=== PATIENT | female | born 1995 | race Caucasian/White ===

== ENCOUNTER 2017-08-24 17:57 | Emergency (ER) | payer OTHER ==
[2017-08-24 18:17] LABS: HCG,QUALITATIVE URINE NEGATIVE; PH,URINE 5.5 (4.5-8); URINE APPEARANCE Clear; URINE BILIRUBIN Negative (NEGATIVE); URINE BLOOD 1+ (NEGATIVE); URINE COLOR YELLOW; URINE GLUCOSE (UA) Negative (NEGATIVE); URINE KETONE Negative (NEGATIVE); URINE NITRITE Negative (NEGATIVE); URINE PROTEIN Negative (NEGATIVE); URINE UROBILINOGEN 0.2 (0.2-1.0)
[2017-08-24 18:21] VITALS: BP 128/79; PULSE 94; TEMP 98.4; BMI 30.1
[2017-08-24 18:48] LABS: BASO % 0.5 % (0-2.0); EOS % 1.7 % (0-4.5); HEMATOCRIT 38.7 % (32.4-45.2); HEMOGLOBIN 13.1 GM/dl (10.7-15.3); LYMPH % 29.7 % (8-40); MCH 32.3 pg (25.7-33.7); MCHC 33.8 g/dl (32.0-36.0); MEAN CELL VOLUME 95.7 fl (80-96); MEAN PLT VOLUME 10.1 fl (7.5-11.1); MONO % 6.7 % (3.8-10.2); NEUT % 61.4 % (42.8-82.8); PLATELET COUNT 233 K/MM3 (134-434); RBC 4.04 M/mm3 (3.60-5.2); RDW 11.8 % (11.6-15.6); WHITE BLOOD COUNT 7.4 K/mm3 (4.0-10.8)
--- NOTE | 2017-08-24 19:01 | PDOC ---
History of Present Illness - History of Present Illness Initial Comments: 08/24/17 19:53 History of Present Illness: 22 y/o F (LMP: July 21) with no PMH presents to the ED with vaginal spotting for 2 days. Patient took two at home tests on 08/21 and 08/22, which were both positive. Yesterday she noticed minimal spotting, and today she reports heavier spotting. She also reports associated right sided pressure/ cramping. She is eating and drinking well. She denies prior pregnancies. Reports her menstrual periods are usually regular. Denies fever, chills. Denies nausea, vomiting, diarrhea. Denies alcohol, tobacco or drug use. Review of Systems: CONSTITUTIONAL: Absent: fever, chills, diaphoresis, generalized weakness, malaise, loss of appetite HEENT: Absent: rhinorrhea, nasal congestion, throat pain, throat swelling, difficulty swallowing, mouth swelling, ear pain, eye pain, visual changes CARDIOVASCULAR: Absent: chest pain, syncope, palpitations, irregular heart rate , lightheadedness, peripheral edema RESPIRATORY: Absent: cough, shortness of breath, dyspnea with exertion, orthopnea, wheezing, stridor, hemoptysis GASTROINTESTINAL: Absent: abdominal pain, abdominal distension, nausea, vomiting , diarrhea, constipation, melena, hematochezia GENITOURINARY: +spotting, right sided pressure/cramping. Absent: dysuria, frequency, urgency, hesitancy, hematuria, flank pain, genital pain MUSCULOSKELETAL: Absent: myalgia, arthralgia, joint swelling SKIN: Absent: rash, itching, pallor HEMATOLOGIC/IMMUNOLOGIC: Absent: easy bleeding, easy bruising, lymphadenopathy, frequent infections ENDOCRINE: Absent: unexplained weight gain, unexplained weight loss, heat intolerance, cold intolerance NEUROLOGIC: Absent: headache, focal weakness or paresthesias, dizziness, unsteady gait, seizure, mental status changes, bladder or bowel incontinence PSYCHIATRIC: Absent: anxiety, depression, suicidal or homicidal ideation, hallucinations. <Guillermina Franco - Last Filed: 08/24/17 19:53> <Wili Grey - Last Filed: 08/29/17 07:16> - General Chief Complaint: Vaginal Sxs Stated Complaint: VAGINAL BLEEDING Time Seen by Provider: 08/24/17 19:00 Past History <Guillermina Franco - Last Filed: 08/24/17 19:53> - Past Medical History COPD: No - Reproductive History Is Patient Now?: Yes (STATES 4 WEEKS) (#): 1 Para: 0 Polycystic Ovaries: No Tubal Ligation: No - Suicide/Smoking/Psychosocial Hx Smoking History: Never smoked Have you smoked in the past 12 months: No Information on smoking cessation initiated: No Hx Alcohol Use: No Drug/Substance Use Hx: No Substance Use Type: None <Wili Grey - Last Filed: 08/29/17 07:16> - Past Medical History Allergies/Adverse Reactions: Allergies Allergy/AdvReac Type Severity Reaction Status Date / Time No Known Allergies Allergy Verified 08/24/17 17:58 Home Medications: Ambulatory Orders NK [No Known Home Medication] 08/24/17 *Physical Exam - Vital Signs Last Vital Signs Temp Pulse Resp BP Pulse Ox 98.4 F 94 H 20 128/79 100 08/24/17 17:57 08/24/17 17:57 08/24/17 17:57 08/24/17 17:57 08/24/17 17:57 <Guillermina Franco - Last Filed: 08/24/17 19:53> - Vital Signs Last Vital Signs Temp Pulse Resp BP Pulse Ox 98.4 F 94 H 20 128/79 100 08/24/17 17:57 08/24/17 17:57 08/24/17 17:57 08/24/17 17:57 08/24/17 17:57 <Wili Grey - Last Filed: 08/29/17 07:16> ED Treatment Course - LABORATORY CBC & Chemistry Diagram: 08/24/17 18:34 - ADDITIONAL ORDERS Additional order review: Laboratory Results 08/24/17 18:05 Urine Color Yellow Urine Appearance Clear Urine pH 5.5 Ur Specific [place] >= 1.030 H Urine Protein Negative Urine Glucose (UA) Negative Urine Ketones Negative Urine Blood 1+ H Urine Nitrite Negative Urine Bilirubin Negative Urine Urobilinogen 0.2 Ur Leukocyte Esterase Negative Urine RBC 4-6 Urine WBC 3-5 Ur Epithelial Cells 3-5 Urine Mucus 1+ Urine HCG, Qual Negative 08/24/17 18:34 RBC 4.04 MCV 95.7 MCHC 33.8 RDW 11.8 MPV 10.1 Neutrophils % 61.4 Lymphocytes % 29.7 Monocytes % 6.7 Eosinophils % 1.7 Basophils % 0.5 <Guillermina Franco - Last Filed: 08/24/17 19:53> - LABORATORY CBC & Chemistry Diagram: 08/24/17 18:34 - ADDITIONAL ORDERS Additional order review: Laboratory Results 08/24/17 18:05 Urine Color Yellow Urine Appearance Clear Urine pH 5.5 Ur Specific [place] >= 1.030 H Urine Protein Negative Urine Glucose (UA) Negative Urine Ketones Negative Urine Blood 1+ H Urine Nitrite Negative Urine Bilirubin Negative Urine Urobilinogen 0.2 Ur Leukocyte Esterase Negative Urine HCG, Qual Negative 08/24/17 18:34 RBC 4.04 MCV 95.7 MCHC 33.8 RDW 11.8 MPV 10.1 Neutrophils % 61.4 Lymphocytes % 29.7 Monocytes % 6.7 Eosinophils % 1.7 Basophils % 0.5 <Wili Grey - Last Filed: 08/29/17 07:16> Medical Decision Making - Medical Decision Making 08/24/17 19:31 Cramping and spotting for 2 days. LMP July 21. Home test reportedly positive performed on August 21. No lightheadedness or dizziness. Patient desires to be . Vaginal bleeding described as slight spotting yesterday, and a little bit increased today. Pain is mid pelvic, mild, and intermittent, similar to menstrual cramps Possibly the first , no history of STD or other pelvic, ovarian, or uterine disease. Past medical history denies serious medical or surgical problems past her present, home medications. Denies tobacco alcohol or street drugs Vital signs and physical exam: Well-developed well-nourished no acute distress cheerful and cooperative Afebrile, vital signs normal No pallor or icterus. PERRLA, ENT clear Neck supple without bruit mass or nodes Chest clear CV regular without murmur rub or gallop Abdomen nondistended. Normal bowel sounds. Soft without masses tenderness organomegaly. No CVAT Neurological intact Skin clear, no rash, adequate turgor with mucous membranes Extremities no CCE Impression: Rule out , rule out ectopic, rule out missed / threatened Plan: Repeat test, CBC and chemistries, observe. 08/24/17 19:35 Urine is negative. Serum sent. No significant vaginal bleeding at present. No significant pain. 08/24/17 20:51 Serum beta is 25.9. CBC is normal. Most likely etiology is irregular menses. Patient in no significant discomfort. Clinically and hemodynamically stable. Unlikely . Instructed to see OB 1 week and repeat test. Has a ELECTRICAL LINE SPLICER physician with whom she agrees to follow up. Bed rest recommended until F/U. <Wili Grey - Last Filed: 08/29/17 07:16> *DC/Admit/Observation/Transfer - Attestations Scribe Attestion: 08/24/17 19:54 Documentation prepared by Guillermina Franco, acting as medical practitioners for Wili Lopez MD. <Guillermina Franco - Last Filed: 08/24/17 19:53> - Discharge Dispostion Admit: No <Wili Grey - Last Filed: 08/29/17 07:16> Diagnosis at time of Disposition: Vaginal bleeding - Discharge Dispostion Disposition: HOME Condition at time of disposition: Stable - Patient Instructions Printed Discharge Instructions: DI for Vaginal Bleeding Additional Instructions: There is no sign of a 2-3 week . Your urine test is negative. Your blood test is extremely low. If you don't experienced your usual. Within one week, you should see your ELECTRICAL [employer] SPLICER doctor and repeat the test at that time. In the meantime, it is advised bedrest until follow-up with your physician.
[2017-08-24 19:02] LABS: URINE MUCUS 1+
== END 2017-08-24 21:02 | disposition home or self-care (01) ==
LOC: FER 17:57
DX: N93.9 Abnormal uterine and vaginal bleeding, unspecified (principal)
CPT/HCPCS: 36415; 81003; 81015; 84702; 84703; 85025; 86850; 86900; 86901; 99282-25

== ENCOUNTER 2017-11-09 14:38 | Emergency (ER) | payer OTHER ==
--- NOTE | 2017-11-09 14:55 | PDOC ---
History of Present Illness - General History Source: Patient Exam Limitations: No Limitations - History of Present Illness Initial Comments: 11/09/17 15:28 The patient is a 22 year old female, with no significant past medical history, who presents to the emergency department with, a migraine, chest discomfort, and diffuse body aches. As per patient, she has had back pain for two weeks prior to her body aches localized to her spine. Secondary to her symptoms, she reports a sore throat, shortness of breath, and chills. The patients last menses was October 30. The patient reports to have had ovarian cysts in the past and to have had a miscarriage two months ago. She denies recent fevers, chills, headache or dizziness. She denies recent nausea, vomit, diarrhea or constipation. She denies recent dysuria, frequency, urgency or hematuria. She denies recent chest pain or shortness of breath. Allergies: NKA Past surgical history: None reported. Social history: Occasional smoker. Denies EtOH use and recreational drug use. <Ursula Lewis - Last Filed: 11/09/17 16:00> <Wili Grey - Last Filed: 11/09/17 16:34> - General Chief Complaint: Pain Stated Complaint: BODY ACHES HEADACHE SORE THROAT Time Seen by Provider: 11/09/17 14:49 Past History <Ursula Lewis - Last Filed: 11/09/17 16:00> - Past Medical History COPD: No - Reproductive History (#): 1 Para: 0 Polycystic Ovaries: No Tubal Ligation: No - Suicide/Smoking/Psychosocial Hx Smoking History: Never smoked Have you smoked in the past 12 months: No Hx Alcohol Use: No Drug/Substance Use Hx: No Substance Use Type: None <Wili Grey - Last Filed: 11/09/17 16:34> - Past Medical History Allergies/Adverse Reactions: Allergies Allergy/AdvReac Type Severity Reaction Status Date / Time No Known Allergies Allergy Verified 08/24/17 17:58 Home Medications: Ambulatory Orders Guaifenesin AC [Robitussin-AC] 1 - 2 tsp PO Q4HWA PRN #90 ml MDD 8 11/09/17 Ibuprofen 600 mg PO TID #20 tablet 11/09/17 Review of Systems - Review of Systems Able to Perform ROS?: Yes Comments:: 11/09/17 15:29 CONSTITUTIONAL: Present: Body aches, chills Absent: fever EYES: Absent: visual changes ENT: Present: Sore throat Absent: ear pain CARDIOVASCULAR: Present: Chest pain Absent: no palpitations RESPIRATORY: Present SOB Absent: cough GI: Absent: abdominal pain, no nausea, no vomiting, no constipation, no diarrhea GENITOURINARY: Absent: dysuria, no frequency, no hematuria MUSKULOSKELETAL: Present: Back pain. Absent: no arthralgia, no myalgia SKIN: Absent: rash NEURO: Present: Migraine <Ursula Lewis - Last Filed: 11/09/17 16:00> *Physical Exam - Vital Signs Last Vital Signs Temp Pulse Resp BP Pulse Ox 98.7 F 106 H 18 112/65 100 11/09/17 14:39 11/09/17 14:39 11/09/17 14:39 11/09/17 14:39 11/09/17 14:39 - Physical Exam Comments: 11/09/17 16:01 GENERAL: Well developed, well nourished. Awake and alert. No acute distress. (+)HEENT: Mild pharyngeal ejection without swelling or exudates. Normocephalic, atraumatic. PERRLA, EOMI. No conjunctival pallor. Sclera are non-icteric. Moist mucous membranes. NECK: Supple. Full ROM. No JVD. Carotid pulses 2+ and symmetric, without bruits. No thyromegaly. No lymphadenopathy. CARDIOVASCULAR: Regular rate and rhythm. No murmurs, rubs, or gallops. Distal pulses are 2+ and symmetric. PULMONARY: No evidence of respiratory distress. Lungs clear to auscultation bilaterally. No wheezing, rales or rhonchi. ABDOMINAL: Soft. Non-tender. Non-distended. No rebound or guarding. No organomegaly. Normoactive bowel sounds. MUSCULOSKELETAL Normal range of motion at all joints. No bony deformities or tenderness. No CVA tenderness. EXTREMITIES: No cyanosis. No clubbing. No edema. No calf tenderness. SKIN: Warm and dry. Normal capillary refill. No rashes. No jaundice. NEUROLOGICAL: No point tenderness of the spine, no swelling, or masses. Alert, awake, appropriate. Cranial nerves 2-12 intact. No deficits to light touch and temperature in face, upper extremities and lower extremities. No motor deficits in the in face, upper extremities and lower extremities. Normoreflexic in the upper and lower extremities. Normal speech. Toes are down-going bilaterally. Gait is normal without ataxia. PSYCHIATRIC: Cooperative. Good eye contact. Appropriate mood and affect. <Ursula Lewis - Last Filed: 11/09/17 16:00> ED Treatment Course - LABORATORY CBC & Chemistry Diagram: 11/09/17 15:36 11/09/17 15:36 <Ursula Lewis - Last Filed: 11/09/17 16:00> - LABORATORY CBC & Chemistry Diagram: 11/09/17 15:36 11/09/17 15:36 <Wili Grey - Last Filed: 11/09/17 16:34> Medical Decision Making - Medical Decision Making 11/09/17 16:29 Strep is negative. CBC chemistries and urinalysis clear, no significant abnormalities Most likely viral upper respiratory illness, bronchitis, aggravated by smoking Symptomatic treatment and follow-up primary physician <Wili Grey - Last Filed: 11/09/17 16:34> *DC/Admit/Observation/Transfer - Attestations Scribe Attestion: 11/09/17 15:29 Documentation prepared by Ursula Lewis, acting as medical administrator for Wili Lopez MD. <Ursula Lewis - Last Filed: 11/09/17 16:00> - Discharge Dispostion Admit: No <Wili Grey - Last Filed: 11/09/17 16:34> Diagnosis at time of Disposition: Viral bronchitis - Discharge Dispostion Disposition: HOME Condition at time of disposition: Stable - Patient Instructions Printed Discharge Instructions: DI for Acute Bronchitis Additional Instructions: Rest, fluids, medication as directed. Try to stop smoking, because irritation to the lungs may prevent you from improving. See family physician for further treatment.
[2017-11-09] MEDS ORDERED: IBUPROFEN 400 MG TABLET (FP) PO ONE ×2 (15:21→15:28)
[2017-11-09] MEDS ORDERED: guaiFENesin/CODEINE 10 ML UNIT-DOSE CUPS PO ONE (15:22)
[2017-11-09] MEDS ORDERED: guaiFENesin/CODEINE 10 ML UNIT-DOSE CUPS ONE (15:28)
[2017-11-09 15:30] LABS: HCG,QUALITATIVE URINE NEGATIVE
[2017-11-09 15:45] VITALS: BP 112/65; PULSE 106; TEMP 98.7; BMI 29.2
[2017-11-09 15:52] LABS: BASO % 0.7 % (0-2.0); EOS % 1.8 % (0-4.5); HEMATOCRIT 38.9 % (32.4-45.2); HEMOGLOBIN 13.1 GM/dl (10.7-15.3); LYMPH % 14.8 % (8-40); MCH 31.8 pg (25.7-33.7); MCHC 33.8 g/dl (32.0-36.0); MEAN CELL VOLUME 94.1 fl (80-96); MEAN PLT VOLUME 9.4 fl (7.5-11.1); MONO % 10.6 % (3.8-10.2); NEUT % 72.1 % (42.8-82.8); PLATELET COUNT 228 K/MM3 (134-434); RBC 4.14 M/mm3 (3.60-5.2); RDW 11.7 % (11.6-15.6); WHITE BLOOD COUNT 4.4 K/mm3 (4.0-10.8)
[2017-11-09 16:11] LABS: URINE APPEARANCE Clear; URINE BILIRUBIN Negative (NEGATIVE); URINE BLOOD Negative (NEGATIVE); URINE GLUCOSE (UA) Negative (NEGATIVE); URINE KETONE Negative (NEGATIVE); URINE LEUK ESTERASE Negative (NEGATIVE); URINE NITRITE Negative (NEGATIVE); URINE PROTEIN Negative (NEGATIVE); URINE UROBILINOGEN 0.2 (0.2-1.0)
[2017-11-09 16:12] LABS: URINE COLOR YELLOW
[2017-11-09 16:13] LABS: ALBUMIN 3.9 g/dl (3.5-5.0); ALK PHOS 66 U/L (32-92); ANION GAP 7 (8-16); BLOOD UREA NITROGEN 11 mg/dl (7-18); CALCIUM 9.2 mg/dl (8.4-10.2); CHLORIDE 101 mmol/L (98-107); CO2 26 mmol/L (22-28); GLUCOSE,RANDOM 89 mg/dl (74-106); POTASSIUM 4.3 mmol/L (3.5-5.1); SGOT/AST 18 U/L (10-42); SGPT/ALT 29 U/L (10-40); SODIUM 134 mmol/L (136-145); TOT PROT 6.8 g/dl (6.4-8.3)
[2017-11-09 16:22] LABS: BILIRUBIN,TOTAL 0.5 mg/dl (0.2-1.0)
[2017-11-09 16:25] LABS: CREATININE < 0.8 mg/dl (0.6-1.3)
== END 2017-11-09 16:50 | disposition home or self-care (01) ==
LOC: FER 14:38
DX: J20.8 Acute bronchitis due to other specified organisms (principal)
CPT/HCPCS: 36415; 80053; 81003; 84703; 85025; 87070; 87430; 99282-25

== ENCOUNTER 2018-11-12 11:10 | Inpatient (IN) | payer OTHER ==
[2018-11-12 12:13] LABS: BASO % 0.3 % (0-2.0); EOS % 0.2 % (0-4.5); HEMATOCRIT 34.6 % (32.4-45.2); HEMOGLOBIN 11.6 GM/dL (10.7-15.3); LYMPH % 16.3 % (8-40); MCH 30.6 pg (25.7-33.7); MCHC 33.4 g/dl (32.0-36.0); MEAN CELL VOLUME 91.7 fl (80-96); MEAN PLT VOLUME 9.1 fl (7.5-11.1); MONO % 5.2 % (3.8-10.2); PLATELET COUNT 237 K/MM3 (134-434); RBC 3.78 M/mm3 (3.60-5.2); RDW 13.1 % (11.6-15.6); WHITE BLOOD COUNT 10.4 K/mm3 (4.0-10.0)
[2018-11-12 12:18] VITALS: BMI 38.0
[2018-11-12 12:31] LABS: ANION GAP 7 MMOL/L (8-16); BLOOD UREA NITROGEN 11 mg/dL (7-18); CALCIUM 8.7 mg/dL (8.5-10.1); CHLORIDE 105 mmol/L (98-107); CO2 24 mmol/L (21-32); CREATININE 0.6 mg/dL (0.55-1.3); GLUCOSE,RANDOM 103 mg/dL (74-106); INR 0.96 (0.83-1.09); PROTHROMBIN TIME (PATIENT) 11.3 SEC (9.7-13.0); SODIUM 136 mmol/L (136-145)
[2018-11-12] MEDS ORDERED: BUTORPHANOL TARTRATE 1 MG/ML VIAL IVPB ONE (15:07)
[2018-11-12] MEDS ORDERED: PROMETHAZINE HCL 25 MG/1 ML VIAL IVPB ONE (15:07)
[2018-11-12] MEDS ORDERED: DINOPROSTONE 10 MG VAGINAL SUPPOSITORY VG ONE (15:10)
--- NOTE | 2018-11-12 15:24 | HP ---
Past Medical History - Admission Chief Complaint: Here for IOL 2/2 IUGR. History of Present Illness: 23 y/o P0 female with IUP at 37 weeks here for iOL per M recommendations. Pt has been followed with symmetric IUGR and weekly dopplers WNL. Pt feels no pain/contractions/VB. +FM. otherwise uncomplicated. History Source: Medical Record Limitations to Obtaining History: No Limitations - Past Medical History Cardiovascular: No: HTN, ID Pulmonary: No: Asthma, COPD Gastrointestinal: No: GERD, Inflamatory Bowel Disease Hepatobiliary: No: Hepatitis B, Hepatitis C ...: 2 ...Para: 0 ...Term: 0 ...: 0 ...Spon : 1 ...Induced : 0 ...Multiple Gestation: 0 ...LMP: 02/26/18 ... Weeks Gestation by Dates: 37.3 ...EDC by Dates: 11/30/18 Heme/Onc: No: Sickle Cell Disease, Sickle Cell Trait Psych: No: Anxiety, Bipolar, Depression Musculoskeletal: No: Chronic low back pain Endocrine: No: Diabetes Mellitus, Hyperthyroidism, Hypothyroidism - Past Surgical History Past Surgical History: Yes: None Hx Myomectomy: No Hx Transabdominal Cerclage: No - Smoking History Smoking history: Unknown if ever smoked Have you smoked in the past 12 months: No - Alcohol/Substance Use Hx Alcohol Use: No History of Substance Use: reports: None - Social History Usual Living Arrangement: Yes: With Spouse ADL: Independent History of Recent Travel: No Home Medications - Allergies Allergies/Adverse Reactions: Allergies Allergy/AdvReac Type Severity Reaction Status Date / Time No Known Allergies Allergy Verified 11/12/18 12:23 - Home Medications Home Medications: Ambulatory Orders One Tablet 1 tab PO DAILY 10/15/18 Physical Exam - Maternity Vital Signs: Vital Signs Temperature 98.2 F 11/12/18 11:10 Pulse Rate 98 H 11/12/18 15:00 Respiratory Rate 20 11/12/18 15:00 Blood Pressure 110/70 11/12/18 15:00 O2 Sat by Pulse Oximetry (%) Constitutional: Yes: Well Nourished, No Distress Eyes: Yes: Conjunctiva Clear, EOM Intact HENT: Yes: Normocephalic Neck: Yes: Supple Cardiovascular: Yes: Regular Rate and Rhythm Lungs: Clear to auscultation - Abdominal Exam/OB Fundal Height: 38 Number of Fetuses: Single Presentation: Vertex Contractions: No Category: I Accelerations: Uniform Decelerations: None - Vaginal Exam/OB Dilatation (cm): 0 Effacement (%): 0 Amniotic Membrane Status: Intact (exam per laborist athletic monitor) - Physical Exam Psychiatric: Yes: Alert, Oriented - Labs Lab Results: CBC, BMP 11/12/18 11:40 11/12/18 11:40 Assessment/Plan cervidil induction per [facility] recommendations
[2018-11-12] MEDS ORDERED: TUBERCULIN PPD 5 TU/0.1ML SYRINGE (IN PATIENT USE ONLY) ID ONE (18:00)
[2018-11-13] MEDS ORDERED: DEXTROSE 5%-LACTATED RINGERS 1,000 ML IV SCH ×2 (04:45)
[2018-11-13] MEDS ORDERED: OXYTOCIN 30 UNITS in 0.9% NS 30 UNIT/500 ML INFUS.BAG IVPB ONE (09:10)
--- NOTE | 2018-11-13 09:10 | PN ---
Ante-Partal Exam - Subjective Subjective: Pt feeling occasional contractions. Vital Signs: Vital Signs Temperature 97.8 F 11/13/18 06:00 Pulse Rate 80 11/13/18 08:00 Respiratory Rate 20 11/13/18 08:00 Blood Pressure 120/68 11/13/18 08:00 O2 Sat by Pulse Oximetry (%) Bleeding: No Headache: No Visual changes: No Right upper quadrant pain: No Pain (scale 1-10): 1 - Contractions Contractions: Yes Regularity: Irregular Intensity: Mild/Mod - Exam during Labor Heart Rate: 130 Variability: Moderate Category: I Monitor Accelerations: Present Monitor Decelerations: None Exam: Vaginal Dilatation (cm): 1 Effacement (%): 70 Amniotic Membrane Status: Intact Presentation: Vertex Station: 0 - Assessment/Plan Assessment/Plan: IOL for IUGR s/p cervidil to start pitocin
[2018-11-13] MEDS ORDERED: OXYTOCIN 30 UNITS in 0.9% NS 30 UNIT/500 ML INFUS.BAG IVPB SCH (10:45)
[2018-11-13] MEDS ORDERED: BUTORPHANOL TARTRATE 2 MG/ML VIAL ONE (14:26)
[2018-11-13] MEDS ORDERED: PROMETHAZINE HCL 25 MG/1 ML VIAL ONE (14:27)
--- NOTE | 2018-11-13 19:40 | PN ---
Ante-Partal Exam - Subjective Subjective: Pt wih co of pain pt desires epidural Pt hungry will give ice pop Vital Signs: Vital Signs Temperature 97.7 F 11/13/18 18:00 Pulse Rate 83 11/13/18 18:00 Respiratory Rate 20 11/13/18 18:00 Blood Pressure 121/70 11/13/18 18:00 O2 Sat by Pulse Oximetry (%) Bleeding: No Headache: No Visual changes: No Right upper quadrant pain: No - Contractions Contractions: Yes Regularity: Irregular Intensity: Moderate Monitor Mode: External - Exam during Labor Heart Rate: 130 Variability: Moderate Heart Rate Location: [facility] Category: I Monitor Decelerations: None Exam: Vaginal Dilatation (cm): 2cm Effacement (%): 90 Amniotic Membrane Status: Intact Presentation: Vertex Station: -1 - Intrapartum Hemorrhage Risk Risk Score: 0 Risk Level: Low Risk - Assessment/Plan Assessment/Plan: IUGR 37.2 week by usg [place] Cat 1 SP cervidil X 2 Plan epidural pitocin
[2018-11-13] MEDS: ELECTROLYTE-148 SOLN 1,000 ML IV SCH (20:30)
[2018-11-13] MEDS ORDERED: FENTANYL/BUPIVACAINE/NS/PF - PCEA - 50 ML DISP.SYRIN EP ONE (20:32)
[2018-11-13] MEDS: FENTANYL/BUPIVACAINE/NS/PF - PCEA - 50 ML DISP.SYRIN EP SCH (20:55)
[2018-11-13] MEDS ORDERED: FENTANYL/BUPIVACAINE/NS/PF - PCEA - 50 ML DISP.SYRIN EP SCH ×2 (22:00)
[2018-11-13] MEDS ORDERED: NALOXONE HCL 0.4 MG/ML VIAL IVPUSH PRN (22:01)
[2018-11-14] MEDS ORDERED: FENTANYL/BUPIVACAINE/NS/PF - PCEA - 50 ML DISP.SYRIN EP ONE ×2 (00:40→05:11)
[2018-11-14] MEDS: FENTANYL/BUPIVACAINE/NS/PF - PCEA - 50 ML DISP.SYRIN EP SCH ×2 (00:44→05:10)
[2018-11-14] MEDS: ELECTROLYTE-148 SOLN 1,000 ML IV SCH (01:24)
[2018-11-14] MEDS ORDERED: BUPIVACAINE HCL/PF 0.25% (2.5MG/ML) 10 ML VIAL ONE (02:08)
[2018-11-14] MEDS ORDERED: LIDOCAINE HCL 1% PRESERVATIVE FREE - 30ML VIAL ONE (05:36)
--- NOTE | 2018-11-14 06:11 | PN ---
Ante-Partal Exam - Subjective Subjective: Pt with lots of pressure Vital Signs: Vital Signs Temperature 97.9 F 11/14/18 05:00 Pulse Rate 116 H 11/14/18 05:10 Respiratory Rate 20 11/14/18 05:10 Blood Pressure 128/70 11/14/18 05:10 O2 Sat by Pulse Oximetry (%) 99 11/14/18 05:10 Bleeding: Yes (bloody show) Bleeding Description: Mild Headache: No Visual changes: No Right upper quadrant pain: No - Contractions Contractions: Yes Regularity: Regular Intensity: Moderate Monitor Mode: External - Exam during Labor Heart Rate: 140 Variability: Moderate Category: I Monitor Accelerations: Present Monitor Decelerations: None Exam: Vaginal Dilatation (cm): FD Effacement (%): 100 Amniotic Membrane Status: Ruptured Presentation: Vertex Station: +1 - Assessment/Plan Assessment/Plan: Cat 1 37 weeks 2nd stage of labor Plan Anticipate vaginal delivery
[2018-11-14] MEDS ORDERED: BENZOCAINE 20% 57 GM BOTTLE TP PRN (06:13)
[2018-11-14] MEDS ORDERED: BISACODYL 10 MG SUPP.RECT PR PRN (06:13)
[2018-11-14] MEDS ORDERED: WITCH HAZEL 50% (TUCKS) 40 PAD/JAR PAD TP PRN (06:13)
[2018-11-14] MEDS ORDERED: ACETAMINOPHEN 325 MG TABLET (FP) PO PRN (06:13)
[2018-11-14] MEDS ORDERED: METHYLERGONOVINE MALEATE 0.2 MG/1 ML AMP IM PRN (06:13)
[2018-11-14] MEDS ORDERED: IBUPROFEN 600 MG TABLET (FP) PO PRN (06:13)
[2018-11-14] MEDS ORDERED: BENZOCAINE 28 GM HEMORRHOIDAL OINTMENT PR PRN (06:13)
--- NOTE | 2018-11-14 06:13 | PN ---
Delivery - Delivery Vaginal Delivery: No Problems (SHoulders delivered without complication) Episiotomy/Laceration: None EBL (cc): 250 Delivery, Single - Stages of Labor Placenta: Yes: Spontaneous - Condition of Peripatologist/Loader Demolder Present: No Gender: Female Position: OA - Feeding Plan Initial Plan: Elected not to breastfeed exclusively throughout hospitalization
[2018-11-14] MEDS ORDERED: OXYTOCIN 20 UNITS in 0.9% NS 20 UNIT/1,000 ML INFUS.BAG IV SCH (06:15)
[2018-11-14 06:42] LABS: VENOUS PC02 63.5 mmHg (41-51); VENOUS PH 7.25 (7.31-7.41)
[2018-11-14 06:47] LABS: VENOUS PO2 16.1 mmHg (30-40)
--- NOTE | 2018-11-15 06:08 | PN ---
Post Note - Post Date of Delivery: 11/14/18 Post Day: 1 Vital Signs: Vital Signs - 24 hr 11/14/18 11/14/18 11/14/18 06:20 06:35 06:50 Temperature 99.8 F H Pulse Rate 109 H 98 H 99 H Respiratory 20 20 18 Rate Blood Pressure 126/76 128/75 127/78 O2 Sat by Pulse 100 100 100 Oximetry (%) 11/14/18 11/14/18 11/14/18 14:00 18:00 22:00 Temperature 98.6 F 98.4 F 98.7 F Pulse Rate 96 H 100 H 109 H Respiratory 18 18 18 Rate Blood Pressure 97/48 L 107/65 117/62 O2 Sat by Pulse Oximetry (%) Labs: Laboratory Results - last 24 hr 11/14/18 06:15 VBG pH 7.25 L POC VBG pCO2 63.5 H POC VBG pO2 16.1 L VBG HCO3 26.9 VBG O2 Sat (Stephen) 22.9 L VBG Base Excess -2.0 - Subjective Subjective: No Complaints - Objective Afebrile: No Breast: Not engorged Abdomen: Soft Uterus: Fundus firm Vagina: Scant lochia Extremities: Non-tender - Assessment/Plan (1) Normal vaginal delivery Assessment: S/P Normal Plan: Routine Care
[2018-11-15 08:05] LABS: BASO % 0.2 % (0-2.0); EOS % 0.4 % (0-4.5); HEMATOCRIT 34.4 % (32.4-45.2); HEMOGLOBIN 11.3 GM/dL (10.7-15.3); LYMPH % 17.7 % (8-40); MCH 30.2 pg (25.7-33.7); MCHC 32.9 g/dl (32.0-36.0); MEAN CELL VOLUME 91.9 fl (80-96); MEAN PLT VOLUME 8.7 fl (7.5-11.1); MONO % 6.6 % (3.8-10.2); NEUT % 75.1 % (42.8-82.8); PLATELET COUNT 242 K/MM3 (134-434); RBC 3.75 M/mm3 (3.60-5.2); RDW 13.1 % (11.6-15.6); WHITE BLOOD COUNT 13.2 K/mm3 (4.0-10.0)
[2018-11-15] MEDS ORDERED: DIPHTH,PERTUSS(ACELL),TET 0.5 ML DISP.SYRIN IM ONE ×2 (10:00)
[2018-11-16 00:55] VITALS: TEMP 97.7
--- NOTE | 2018-11-16 08:21 | DS ---
Physical Exam-EMPLOYMENT ADVISOR Vital Signs: Vital Signs Temperature 97.7 F 11/15/18 22:00 Pulse Rate 85 11/15/18 22:00 Respiratory Rate 20 11/15/18 22:00 Blood Pressure 105/63 11/15/18 22:00 O2 Sat by Pulse Oximetry (%) 100 11/14/18 06:50 Constitutional: Yes: Well Nourished, No Distress Cardiovascular: Yes: WNL Respiratory: Yes: WNL Gastrointestinal: Yes: WNL, Soft ....Post : Yes: Uterus firm, Uterus non-tender Breast(s): Yes: WNL Musculoskeletal: Yes: WNL Extremities: Yes: WNL Edema: Yes Edema: LLE: Trace, RLE: Trace Neurological: Yes: WNL, Alert, Oriented Labs: CBC, BMP 11/15/18 06:10 11/12/18 11:40 Delivery - Delivery Vaginal Delivery: No Problems (SHoulders delivered without complication) Type of Anesthesia: Epidural Episiotomy/Laceration: None EBL (cc): 250 Delivery, Single - Stages of Labor Date 1st Stage Initiatied: 11/13/18 Time 1st Stage Initiated: 14:25 Date 2nd Stage Initiated: 11/14/18 Time 2nd Stage Initiated: 05:30 Date of Delivery: 11/14/18 Time of Delivery: 05:53 Time Placenta Delivered: 05:55 Placenta: Yes: Spontaneous - Condition of Hvac Sales Engineer/Mixer Crane Operator Present: No Infant Gender: Female Weight: 5 lb 2 oz Position: Left, OA Total Hours ROM (Hrs/Mins): 23m - 1 Minute Total Score: 8 5 Minutes Total Score: 9 - [place] Feeding Plan Initial Plan: Elected not to breastfeed exclusively throughout hospitalization Discharge Summary Reason For Visit: INDUCTION OF LABOR Current Active Problems Normal vaginal delivery (Acute) Procedures: Principal: Normal vaginal delivery Hospital Course: stable Condition: Good - Instructions Diet, Activity, Other Instructions: Physical activity Resume your normal everyday activity as tolerated no heavy lifting or exercise until seen by your surgeon. You may walk unlimited ke of and climb stairs. You may resume driving the car when you feel safe and comfortable behind the wheel. No sexual activity as instructed. Wound care If you have a bandage, leave it on, and keep dry for 48-72 hours. After that time discard the outer bandage. If they are tapes on the skin under the out of bandage leave them in place. They will peel off in the next 7 to 10 days. Do Not Peel them off. You may shower the day after surgery. If there are tapes present on the skin, you may shower over them. Diet There are no dietary restrictions. Eat healthy, high-fiber foods. Drink 6 to 8 glasses of liquid each day. This will assist in keeping your bowels are regular. Pain management You may take Tylenol or acetaminophen or Ibuprofen (for example, Motrin, Advil etc.) from my pain prescription medication is ordered should be taken as prescribed for moderate to severe pain. Call MD for any of the following: Severe pain not relieved by medication Fever of 101 or higher Excessive bleeding or drainage on dressing Inability to urinate Disposition: HOME - Home Medications Comprehensive Discharge Medication List: Ambulatory Orders One Tablet 1 tab PO DAILY 10/15/18
[2018-11-16 12:00] VITALS: BP 103/70; PULSE 90
== END 2018-11-16 11:40 | disposition home or self-care (01) | DRG 560 ==
LOC: JLDR 11:10 → J3W 11-14 08:16
PROVIDERS: ADMIT Obstetrics & Gynecology; ATTEND Obstetrics & Gynecology
PROC: 3E0P7VZ Introduction of Hormone into Female Reproductive, Via Natural or Artificial Opening (ICD-10-PCS; 2018-11-12)
PROC: 10E0XZZ Delivery of Products of Conception, External Approach (ICD-10-PCS; principal; 2018-11-14)
DX: O36.5930 Maternal care for other known or suspected poor fetal growth, third trimester, not applicable or unspecified (principal); Z3A.37 37 weeks gestation of pregnancy; Z37.0 Single live birth
CPT/HCPCS: 36415; 59409; 80048; 82803; 85025; 85610; 85730; 86593; 86850; 86900; 86901; 90715

== ENCOUNTER 2020-07-29 20:40 | Inpatient (IN) | payer OTHER ==
[2020-07-29] MEDS: ELECTROLYTE-148 SOLN 1,000 ML IV SCH ×2 (21:45→23:37)
[2020-07-29] MEDS ORDERED: PROMETHAZINE HCL 25 MG/1 ML VIAL IVPUSH ONE (21:48)
[2020-07-29] MEDS ORDERED: BUTORPHANOL TARTRATE 2 MG/ML VIAL IVPB PRN (21:48)
[2020-07-29] MEDS ORDERED: AMPICILLIN SODIUM 2 GM VIAL ONE (21:52)
[2020-07-29] MEDS ORDERED: AMPICILLIN - 2 GM in SODIUM CHLORIDE 100 ML IVPB ONE (22:00)
[2020-07-29 22:10] LABS: BASO % 0.1 % (0-2.0); EOS % 0.1 % (0-4.5); HEMATOCRIT 35.4 % (32.4-45.2); HEMOGLOBIN 11.5 GM/dL (10.7-15.3); LYMPH % 17.3 % (8-40); MCH 29.3 pg (25.7-33.7); MCHC 32.6 g/dl (32.0-36.0); MEAN PLT VOLUME 9.7 fl (7.5-11.1); MONO % 5.4 % (3.8-10.2); NEUT % 77.1 % (42.8-82.8); PLATELET COUNT 258 K/MM3 (134-434); RBC 3.93 M/mm3 (3.60-5.2); RDW 14.1 % (11.6-15.6); WHITE BLOOD COUNT 11.6 K/mm3 (4.0-10.0)
[2020-07-29] MEDS ORDERED: OXYTOCIN 30 UNITS in 0.9% NS 30 UNIT/500 ML INFUS.BAG IVPB SCH (22:15)
[2020-07-29 22:18] LABS: INR 0.97 (0.83-1.09); PROTHROMBIN TIME (PATIENT) 11.9 SEC (9.7-13.0)
[2020-07-29 22:20] LABS: ACTIVATED PTT 28.7 SECONDS (25.2-36.5)
[2020-07-29 22:34] LABS: POTASSIUM 4.1 mmol/L (3.5-5.1)
[2020-07-29 22:35] LABS: CALCIUM 9.1 mg/dL (8.5-10.1)
[2020-07-29 22:36] LABS: BLOOD UREA NITROGEN 10.9 mg/dL (7-18); GAMMA GLUTAMYL TRANSPEPTIDASE 6 U/L (5-85)
[2020-07-29 22:38] LABS: RETICULOCYTES 1.4 % (0.5-1.5)
[2020-07-29 22:39] LABS: CREATININE 0.6 mg/dL (0.55-1.3); SGOT/AST 11 U/L (15-37); SGPT/ALT 17 U/L (13-61); URIC ACID 3.7 mg/dL (2.6-7.2)
[2020-07-29] MEDS ORDERED: FENTANYL/BUPIVACAINE/NS/PF - PCEA - 50 ML DISP.SYRIN EP ONE (22:53)
[2020-07-29] MEDS ORDERED: OXYTOCIN 30 UNITS in 0.9% NS 30 UNIT/500 ML INFUS.BAG IVPB ONE (22:54)
[2020-07-29] MEDS ORDERED: OXYTOCIN 20 UNITS in 0.9% NS 20 UNIT/1,000 ML INFUS.BAG IV ONE (22:54)
[2020-07-29] MEDS ORDERED: LIDOCAINE HCL 1% PRESERVATIVE FREE - 30ML VIAL ONE ×2 (22:54→23:03)
[2020-07-29] MEDS ORDERED: PCA PUMP NR ONE (23:00)
[2020-07-29] MEDS ORDERED: NALOXONE HCL 0.4 MG/ML VIAL IVPUSH PRN (23:08)
[2020-07-29] MEDS ORDERED: LIDO 2%/EPI 1:200000 PRESRVFRE (20 ML SDVIAL) ONE ×2 (23:09→23:38)
[2020-07-29] MEDS ORDERED: FENTANYL/BUPIVACAINE/NS/PF - PCEA - 50 ML DISP.SYRIN EP SCH (23:15)
[2020-07-29 23:31] LABS: HIV INTERPRETATION NEGATIVE (NEGATIVE)
[2020-07-29 23:35] VITALS: BMI 39.3
[2020-07-30] MEDS ORDERED: AMPICILLIN SODIUM 1 GM VIAL ONE (00:58)
[2020-07-30] MEDS: AMPICILLIN - 1 GM in SODIUM CHLORIDE 100 ML IVPB SCH ×2 (01:00→05:59)
[2020-07-30 01:13] LABS: PH,URINE 8.5 (5.0-8.0); URINE APPEARANCE CLEAR; URINE BILIRUBIN NEGATIVE (NEGATIVE); URINE COLOR YELLOW; URINE GLUCOSE (UA) NEGATIVE (NEGATIVE); URINE KETONE NEGATIVE (NEGATIVE); URINE LEUK ESTERASE NEGATIVE (NEGATIVE); URINE NITRITE NEGATIVE (NEGATIVE); URINE PROTEIN NEGATIVE (NEGATIVE); URINE UROBILINOGEN 0.2 mg/dL (0.2-1.0)
[2020-07-30] MEDS ORDERED: ACETAMINOPHEN 325 MG TABLET (FP) ONE (03:45)
[2020-07-30] MEDS ORDERED: IBUPROFEN 600 MG TABLET (FP) PO ONE ×2 (03:45→04:00)
[2020-07-30] MEDS ORDERED: OXYTOCIN 20 UNITS in 0.9% NS 20 UNIT/1,000 ML INFUS.BAG IV ONE (03:46)
[2020-07-30] MEDS ORDERED: ACETAMINOPHEN 325 MG TABLET (FP) PO ONE (04:00)
[2020-07-30] MEDS ORDERED: BENZOCAINE 28 GM HEMORRHOIDAL OINTMENT RC PRN (09:21)
[2020-07-30] MEDS ORDERED: METHYLERGONOVINE MALEATE 0.2 MG/1 ML AMP IM PRN (09:21)
[2020-07-30] MEDS ORDERED: BENZOCAINE 20% 57 GM BOTTLE TP PRN (09:21)
[2020-07-30] MEDS ORDERED: BISACODYL 10 MG SUPP.RECT PR PRN (09:21)
[2020-07-30] MEDS ORDERED: WITCH HAZEL 50% (TUCKS) 40 PAD/JAR PAD TP PRN (09:21)
[2020-07-30] MEDS ORDERED: OXYTOCIN 20 UNITS in 0.9% NS 20 UNIT/1,000 ML INFUS.BAG IV SCH (09:30)
[2020-07-30] MEDS: ACETAMINOPHEN 325 MG TABLET (FP) PO PRN (20:50)
[2020-07-30] MEDS: IBUPROFEN 600 MG TABLET (FP) PO PRN (20:51)
[2020-07-30] MEDS ORDERED: SENNOSIDES/DOCUSATE COMBO (SENNA PLUS) TABLET (UD) PO SCH (22:00)
[2020-07-31 08:28] LABS: BASO % 0.4 % (0-2.0); EOS % 1.1 % (0-4.5); HEMATOCRIT 37.6 % (32.4-45.2); HEMOGLOBIN 12.2 GM/dL (10.7-15.3); LYMPH % 30.7 % (8-40); MCH 29.5 pg (25.7-33.7); MCHC 32.3 g/dl (32.0-36.0); MEAN CELL VOLUME 91.2 fl (80-96); MEAN PLT VOLUME 9.2 fl (7.5-11.1); MONO % 6.5 % (3.8-10.2); NEUT % 61.3 % (42.8-82.8); PLATELET COUNT 258 K/MM3 (134-434); RBC 4.13 M/mm3 (3.60-5.2); RDW 14.6 % (11.6-15.6); WHITE BLOOD COUNT 10.5 K/mm3 (4.0-10.0)
[2020-07-31] MEDS: ACETAMINOPHEN 325 MG TABLET (FP) PO PRN (08:48)
[2020-07-31] MEDS: IBUPROFEN 600 MG TABLET (FP) PO PRN (08:49)
[2020-07-31 09:11] VITALS: BP 109/71; PULSE 99; TEMP 97.9
[2020-08-03 11:53] LABS: POC NITRAZINE POS
== END 2020-07-31 12:47 | disposition home or self-care (01) | DRG 560 ==
LOC: JDEL 20:40 → JLDR 21:20 → J3W 07-30 05:12
PROVIDERS: ADMIT Obstetrics & Gynecology; ATTEND Obstetrics & Gynecology
PROC: 10E0XZZ Delivery of Products of Conception, External Approach (ICD-10-PCS; principal; 2020-07-30)
DX: O48.0 Post-term pregnancy (principal); Z3A.40 40 weeks gestation of pregnancy; O99.824 Streptococcus B carrier state complicating childbirth; Z37.0 Single live birth
CPT/HCPCS: 36415; 59409; 80048; 81003; 82977; 83010; 83986-QW; 84450; 84460; 84550; 85025; 85032; 85045; 85610; 85730; 86780; 86850; 86900; 86901; 87389; 88300-TC; C9803; U0003